=== PATIENT | female | born 1990 | race African-American/Black ===

== ENCOUNTER 2020-02-12 22:36 | Emergency (ER) | payer OTHER ==
[~2020-02-12] VITALS: Ht 165.1 cm; Wt 90.7 kg
[2020-02-12 23:44] LABS: ABSOLUTE NEUTROPHILS 6.1 thou/uL (1.4-8.2); BASOPHILS 0.8 % (0.0-2.0); EOSINOPHILS 0.3 % (0.0-3.0); HEMATOCRIT 39.2 % (37.0-47.0); HEMOGLOBIN 13.1 gm/dL (12.0-15.0); LYMPHOCYTES 23.2 % (24.0-44.0); MCHC 33.4 g/dL (28.0-37.0); MCV 92.8 fL (80.0-100.0); PLATELET COUNT 375 thou/uL (150-400); POLYS 69.7 % (36.0-66.0); RBC 4.23 mil/uL (4.20-5.00); RDW 12.9 % (10.5-14.5); WBC 8.8 thou/uL (4.0-11.0)
[2020-02-13 00:01] LABS: ALBUMIN 4.1 g/dL (3.4-5.0); CALCIUM 9.2 mg/dL (8.5-10.1); CREATININE 1.2 mg/dL (0.6-1.0); DIRECT BILIRUBIN 0.2 mg/dL (<0.1-0.2); TOTAL BILIRUBIN 1.1 mg/dL (0.2-1.0); TOTAL PROTEIN 9.1 g/dL (6.4-8.2)
[2020-02-13 00:22] LABS: POTASSIUM 2.9 mmol/L (3.5-5.1)
[2020-02-13 00:38] LABS: URINE BILIRUBIN 1+ (Negative); URINE BLOOD NEGATIVE (Negative); URINE CLARITY CLEAR; URINE COLOR YELLOW; URINE GLUCOSE-RANDOM* NEGATIVE (Negative); URINE KETONES 1+ (Negative); URINE LEUKOCYTES-REFLEX NEGATIVE (Negative); URINE NITRITE-REFLEX NEGATIVE (Negative); URINE PROTEIN (DIPSTICK) NEGATIVE (Negative)
[2020-02-13] MEDS ORDERED: CARAFATE1 GM PO (02:35)
[2020-02-13] MEDS ORDERED: NORCO 5-325 TA1 EAC2 PO (02:35)
[2020-02-13 02:40] VITALS: BP 129/88
== END 2020-02-13 02:44 | disposition home or self-care (01) ==
LOC: ER 22:36
PROVIDERS: Emergency Medicine
DX: K29.70 Gastritis, unspecified, without bleeding (principal)